=== PATIENT | male | born 1995 | race Caucasian/White ===

== ENCOUNTER 2020-10-02 20:24 | Emergency (ER) | payer OTHER, SELFPAY ==
[~2020-10-02 20:24] MED LIST: Iopamidol 370 76% 100 ML VIAL ONE
[2020-10-02] MEDS ORDERED: Sodium Chloride 0.9% 1,000 ML ONE (20:44)
[2020-10-02 20:57] LABS: Bilirubin Negative (Negative); Blood, Urine Small (Negative); Clarity Clear (Clear); Glucose, Urine (Dipstick) Negative (Negative); Ketone, Urine Negative (Negative); Leukocyte Negative (Negative); Nitrite Negative (Negative); Protein, Urine (Dipstick) Negative (Neg-Trace); Urobilinogen 0.2 mg/dL (Less than 2)
[2020-10-02 21:00] LABS: Specific Gravity, Urine 1.025 (1.002-1.036)
[2020-10-02 21:04] LABS: Bacteria/HPF Rare-Few HPF (None Seen); RBC/HPF 0-3 HPF (0-3); Squamous Epithelial 0-3 HPF (0-3); WBC/HPF 0-3 HPF (0-3)
[2020-10-02 21:08] LABS: Hemoglobin 17.8 g/dL (14.0-18.0); Mean Corpuscular HGB CONC 33.9 g/dL (32.0-36.0); Mean Corpuscular Hemoglobin 30.8 pg (27.0-31.0); Mean Corpuscular Volume 90.9 fL (78.0-98.0); Mean Platelet Volume 8.5 fL (7.4-10.4); Platelet Count 272 thou/uL (130-400); Red Blood Cell (RBC) Count 5.76 mill/uL (4.70-6.10)
[2020-10-02 21:15] LABS: Lymphocytes 31 % (21-51); MDiff Complete? YES; Monocytes 9 % (0-10); Neutrophil 60 % (42-75); Platelet Morphology Comment Appears Adequate; RBC Morphology Normal
[2020-10-02 21:15] LABS: Amphetamine Not Detected (NotDetected); Barbiturates Screen Not Detected (NotDetected); Benzodiazepine Screen Not Detected (NotDetected); Cocaine Metabolite Screen Not Detected (NotDetected); Medtox Control Line Valid? VALID (VALID); Methadone Not Detected (NotDetected); Methamphetamine Not Detected (NotDetected); Opiate Screen Not Detected (NotDetected); Oxycodone Screen Not Detected (NotDetected); Phencyclidine (PCP) Not Detected (NotDetected); THC/Cannabinoid Screen Not Detected (NotDetected); Tricyclic Screen Not Detected (NotDetected)
[2020-10-02] MEDS ORDERED: Lidocaine 1% 20 ML MDV ONE (21:17)
[2020-10-02 21:26] LABS: ALT (SGPT) 23 U/L (8-55); AST (SGOT) 21 U/L (5-34); Albumin 5.1 g/dL (3.5-5.0); Alcohol 328 mg/dL (Less than 10); Alkaline Phosphatase 69 U/L (40-110); Anion Gap 20 mmol/L (10-20); BUN (Urea Nitrogen) 7 mg/dL (8.9-20.6); Bilirubin, Total 0.9 mg/dL (0.2-1.2); Calc. Creatinine Clearance 0 mL/min (70-130); Calcium 9.1 mg/dL (7.8-10.44); Carbon Dioxide 23 mmol/L (22-29); Chloride 104 mmol/L (98-107); Globulin 3.3 g/dL (2.4-3.5); Glucose 88 mg/dL (70-105); Lipase 62 U/L (8-78); Potassium 4.1 mmol/L (3.5-5.1); Protein, Total 8.4 g/dL (6.0-8.3); Sodium 143 mmol/L (136-145)
== END 2020-10-02 22:28 | disposition home or self-care (01) ==
LOC: MADERS 20:24
DX: S01.511A Laceration without foreign body of lip, initial encounter (principal); S01.111A Laceration without foreign body of right eyelid and periocular area, initial encounter; S16.1XXA Strain of muscle, fascia and tendon at neck level, initial encounter; S13.4XXA Sprain of ligaments of cervical spine, initial encounter; S50.312A Abrasion of left elbow, initial encounter; F10.129 Alcohol abuse with intoxication, unspecified; F17.220 Nicotine dependence, chewing tobacco, uncomplicated; V89.2XXA Person injured in unspecified motor-vehicle accident, traffic, initial encounter
CPT/HCPCS: 12011; 70450; 70486; 71260; 72125; 74177; 80053; 80306; 80307; 81003; 81015; 83690; 85025; J7050; Q9967